=== PATIENT | female | born 1995 | race Caucasian/White ===

== ENCOUNTER 2023-05-24 19:02 | Inpatient (IN) | payer BC, SELFPAY ==
[2023-05-24] VITALS (8 sets, daily range): BP systolic 102–164; BP diastolic 61–89; BMI 19.1
[2023-05-24 12:33] LABS: Urine Albumin Trace (Neg - Trace); Urine Bilirubin Negative (Negative); Urine Character Slightly Cloudy (Clear); Urine Color Yellow; Urine Glucose Negative (Negative); Urine Ketone 1+ (Negative); Urine Leukocyte Trace (Negative); Urine Nitrite Negative (Negative); Urine Occult Blood 4+ (Negative); Urine Urobilinogen Negative (Neg - 1+)
[2023-05-24 12:46] LABS: Urine Squamous Cell 26-30 /LPF (Few); Urine Urothelial Cell 0-2 /LPF (FEW)
[2023-05-24 12:48] LABS: Urine Red Blood Cell 50-60 /HPF (0-2)
[2023-05-24 12:49] LABS: Urine Bacteria Few (Negative)
[2023-05-24 12:58] LABS: HCG, Urine Qualitative Screen Negative
[2023-05-24] MEDS: TORADOL 15 MG IV ×2 (13:00→18:37)
[2023-05-24] MEDS: OMNIPAQUE 50 ML PO (13:00)
[2023-05-24] MEDS: NSS 1000 IV (13:01)
[2023-05-24 13:09] LABS: Hematocrit 38.1 % (37.0-47.0); Hemoglobin 13.5 g/dL (12.0-16.0); Mean Corp Hgb Conc. 35.4 g/dL (33.0-37.0); Mean Corpuscular Hgb 29.4 pg (27.0-31.0); Mean Platelet Volume 10.3 fL (7.4-10.4); Platelet Count 148 10^3/uL (130-400); Red Blood Cell Count 4.59 10^6/uL (4.20-5.40); Red Cell Dist. Width 12.5 % (11.5-14.5)
[2023-05-24 13:22] LABS: ALT (SGPT) 22 U/L (0-35); AST (SGOT) 23 U/L (14-36); Albumin 4.4 g/dl (3.5-5.0); Alkaline Phosphatase 61 U/L (38-126); Blood Urea Nitrogen 8 mg/dl (7-17); Calcium 9.3 mg/dl (8.4-10.2); Carbon Dioxide 24 mmol/L (22-30); Chloride 105 mmol/L (98-107); Glucose 87 mg/dl (70-99); Lipase 76 U/L (23-300); Potassium 3.5 mmol/L (3.5-5.1); Sodium 135 mmol/L (135-145); Total Bilirubin 0.6 mg/dl (0.2-1.3); Total Protein 7.3 g/dl (6.3-8.2); eGFR > 60.00
--- NOTE | 2023-05-24 13:42 | ED.GENMED ---
History of Present Illness
<Justus Faria PA-C - Last Filed: 05/24/23 14:01>
General
Chief Complaint: Abdominal Pain
Source: patient
Exam Limitations: none
Time Seen by Provider: 05/24/23 12:18
Travel History
Have you had any contact with someone who has COVID-19?: No
Do you have any symptoms of coronavirus? Fever > 100 degrees, chills, cough, shortness of breath, sore throat, loss of taste or smell, muscle aches, or headache?: No
History of Present Illness
History of Present Illness:
27-year-old female presents complaining of right lower abdominal and right flank pain that now is radiating to the left lower abdomen onset yesterday. She also had onset of a fever yesterday. Temperature was 103. She has been using Tylenol and
NyQuil. She also notes abnormal vaginal bleeding. She is a week early with. And now was noted to pass dark clots. Her son is sick with bronchitis. She denies cough.
Past History
<Justus Faria PA-C - Last Filed: 05/24/23 14:01>
Past History
ED Past Medical History: None; Negative Asthma, HTN, Hypercholesterolemia or NIDDM
ED Past Surgical History: None
Social History
Tobacco: Smoker
Alcohol: Occasional
Personal: Single
Living: alone
Phy Exam
<Justus Faria PA-C - Last Filed: 05/24/23 14:01>
Physical Exam
Physical Exam:
General: Well-appearing female no acute respiratory distress
HEENT: Normocephalic atraumatic
Heart: Regular rate and rhythm no murmurs
Lungs: Clear to auscultation bilaterally no wheezing
Abdomen soft tender to the right lower and left lower quadrants and mildly to the right costovertebral angle. Mild guarding no rebound tenderness nondistended
Extremities: No cyanosis or edema
Course
<Justus Faria PA-C - Last Filed: 05/24/23 14:01>
Orders/Labs/Results
Orders:
Orders
05/24/23 12:11
Test Result ONCE
05/24/23 12:12
HCG, Urine Qualitative Screen Urgent
Date Specimen was Collected: 05/24/23
Time Specimen was Collected: 12:11
Urinalysis Reflex To Culture Urgent
Date Specimen was Collected: 05/24/23
Time Specimen was Collected: 12:11
Urine Microscopic Reflex Cult Urgent
05/24/23 12:38
0.9% Sodium Chloride 1000 ml [Nss] 1,000 ml IV BOLUS
Iohexol [Omnipaque] See Protocol PO NOW STA
Ketorolac [Toradol] 15 mg IV NOW STA
US Pelvis W Transvag Combined Urgent
Comment:
Reason For Exam: pelvic pain irregular bleeding
05/24/23 12:55
Complete Blood Count/With Diff Urgent
Comprehensive Metabolic Panel Urgent
Lipase Urgent
Manual Differential Urgent
Monotest Urgent
Comment: ADD ON
05/24/23 13:32
COVID-19 Antigen Urgent
Source: Nasal Swab
Influenza A+B Rapid Molecular Urgent
ARIANA Source: Nasal Swab
Specimen Description:
05/24/23 14:35
Add On- LAB Urgent
Tests Added?: monospot
05/24/23 15:05
CT Abd/pel W Iv And Oral Contr Urgent
Comment:
Reason For Exam: abdominal pain
Iohexol [Omnipaque] See Protocol PO NOW STA
05/24/23 15:23
Ondansetron Injectable [Zofran] 4 mg IV NOW STA
05/24/23 16:11
Blood Culture Q30M
ARIANA Source: Blood/Venous
Specimen Description:
05/24/23 16:31
Blood Culture Q30M
ARIANA Source: Blood/Venous
Specimen Description:
Abnormal Lab Results
05/24/23 05/24/23
12:12 12:55
WBC 2.0 L* 10^3/uL
(4.8-10.8)
Abs Neuts (Manual) 0.8 L* 10^3/uL
(1.4-6.5)
Monocytes (Manual) 29 H %
(2-9)
Creatinine 0.5 L mg/dL
(0.6-1.0)
Urine Ketones 1+ A
(Negative)
Ur Occult Blood Reflex 4+ A
(Negative)
Leukocyte Esterase Rfl Trace A
(Negative)
Urine RBC 50-60 A /HPF
(0-2)
Urine Bacteria (Reflex) Few A
(Negative)
05/24/23 12:55
05/24/23 12:55
Vital Signs
Initial and Last Documented VS:
Initial Vital Signs
Temp Pulse Resp BP Pulse Ox
97.7 F 99 16 164/89 99
05/24/23 11:37 05/24/23 11:37 05/24/23 11:37 05/24/23 11:37 05/24/23 11:37
Last Documented Vital Signs
Temp Pulse Resp BP Pulse Ox
97.7 F 65 16 110/67 98
05/24/23 11:37 05/24/23 16:16 05/24/23 16:16 05/24/23 16:16 05/24/23 16:16
<Roman Wood PA-C - Last Filed: 05/24/23 18:02>
Orders/Labs/Results
Orders:
Orders
05/24/23 12:11
Test Result ONCE
05/24/23 12:12
HCG, Urine Qualitative Screen Urgent
Date Specimen was Collected: 05/24/23
Time Specimen was Collected: 12:11
Urinalysis Reflex To Culture Urgent
Date Specimen was Collected: 05/24/23
Time Specimen was Collected: 12:11
Urine Microscopic Reflex Cult Urgent
05/24/23 12:38
0.9% Sodium Chloride 1000 ml [Nss] 1,000 ml IV BOLUS
Iohexol [Omnipaque] See Protocol PO NOW STA
Ketorolac [Toradol] 15 mg IV NOW STA
US Pelvis W Transvag Combined Urgent
Comment:
Reason For Exam: pelvic pain irregular bleeding
05/24/23 12:55
Complete Blood Count/With Diff Urgent
Comprehensive Metabolic Panel Urgent
Lipase Urgent
Manual Differential Urgent
Monotest Urgent
Comment: ADD ON
05/24/23 13:32
COVID-19 Antigen Urgent
Source: Nasal Swab
Influenza A+B Rapid Molecular Urgent
ARIANA Source: Nasal Swab
Specimen Description:
05/24/23 14:35
Add On- LAB Urgent
Tests Added?: monospot
05/24/23 15:05
CT Abd/pel W Iv And Oral Contr Urgent
Comment:
Reason For Exam: abdominal pain
Iohexol [Omnipaque] See Protocol PO NOW STA
05/24/23 15:23
Ondansetron Injectable [Zofran] 4 mg IV NOW STA
05/24/23 16:11
Blood Culture Q30M
ARIANA Source: Blood/Venous
Specimen Description:
05/24/23 16:31
Blood Culture Q30M
ARIANA Source: Blood/Venous
Specimen Description:
Abnormal Lab Results
05/24/23 05/24/23
12:12 12:55
WBC 2.0 L* 10^3/uL
(4.8-10.8)
Abs Neuts (Manual) 0.8 L* 10^3/uL
(1.4-6.5)
Monocytes (Manual) 29 H %
(2-9)
Creatinine 0.5 L mg/dL
(0.6-1.0)
Urine Ketones 1+ A
(Negative)
Ur Occult Blood Reflex 4+ A
(Negative)
Leukocyte Esterase Rfl Trace A
(Negative)
Urine RBC 50-60 A /HPF
(0-2)
Urine Bacteria (Reflex) Few A
(Negative)
05/24/23 12:55
05/24/23 12:55
Vital Signs
Initial and Last Documented VS:
Initial Vital Signs
Temp Pulse Resp BP Pulse Ox
97.7 F 99 16 164/89 99
05/24/23 11:37 05/24/23 11:37 05/24/23 11:37 05/24/23 11:37 05/24/23 11:37
Last Documented Vital Signs
Temp Pulse Resp BP Pulse Ox
97.7 F 65 16 110/67 98
05/24/23 11:37 05/24/23 16:16 05/24/23 16:16 05/24/23 16:16 05/24/23 16:16
<Justus Faria PA-C - Last Filed: 05/24/23 14:01>
MDM/Problems Addressed
Differential Diagnosis Includes:
Abdominal pain fever abnormal vaginal bleeding. Differential is large. Consider viral illness consider ovarian related pathology given the pain. test will be checked
Start imaging with ultrasound of the pelvis if negative consider CT
<Roman Wood PA-C - Last Filed: 05/24/23 18:02>
*Radiology
Radiology exam reviewed: radiology read reviewed
*Critical Care Note
Total Time (30-74mins, 75-104mins- exclusive of procedures): Not Applicable
<Roman Wood PA-C - Last Filed: 05/24/23 18:02>
Patient Management
Discussion with other providers: Hospitalist
Escalation/DeEscalation of care consider admission/obs:
Patient received in signout pending results of the CT of the abdomen and pelvis. CAT scan ultimately came back without any acute pathologies. Patient remains hemodynamically stable and afebrile. I do have concerns giving her leukopenia and
neutropenia combined with her reported fever of 103.3 yesterday. Given her fever combined with neutropenia I do not feel comfortable discharging the patient home and will admit for continued evaluation and monitoring of her neutropenia as well as
temperatures. Decision to start antibiotics was deferred to hospitalist team who will be managing the patient as there is no clear etiology for patient's fever at this time. Hospitalist team accepts for continued evaluation and treat
ED Attending Note
<Justus Faria PA-C - Last Filed: 05/24/23 14:01>
-
Portions of this chart may have been created with voice recognition software.� Occasional wrong word or��sound alike� substitutions may have occurred due to the inherent limitations of voice recognition software.
Discharge Plan
Departure
Patient Disposition: Admit
Date of Disposition: 05/24/23
Time of Disposition: 17:39
Presentation/result/management discussed w/ accepting MD/DO: Hospitalist
Discharge Problem:
Fever, Abdominal pain, Neutropenia
Prescriptions:
No Action
acetaminophen [Tylenol Extra Strength] 500 mg Tablet
1,000 mg PO DAILYPRN PRN (Reason: mild pain)
albuterol sulfate 90 mcg/actuation Hfa Aerosol Inhaler
2 puff INHALATION R QIDPRN PRN (Reason: bronchitis)
Referrals:
NONE,* [Family Provider] -
Interventions
Interventions:
*Risk Screen - Suicide Last Done: 05/24/23 11:37
*General Assessment Last Done: 05/24/23 11:37
*Neglect/Abuse Screening Last Done: 05/24/23 11:37
ED- Fall Risk Assessment Last Done: 05/24/23 11:44
*ED COVID-19 Vaccine History Last Done: 05/24/23 11:44
QB-Qgudht-Xireomnclx Assessment Last Done: 05/24/23 12:07
Discharge Date and Time
Print Language: NICARAGUAN
[2023-05-24 13:52] LABS: COVID-19 Antigen Negative (Negative)
[2023-05-24 14:15] LABS: Atypical Lymphocytes 1 %; Band Neutrophils 0 % (0-3); Eosinophils 2 % (0-6); Lymphocytes 24 % (20-51); Monocytes 29 % (2-9); Segmented Neutrophils 44 % (42-75)
[2023-05-24 14:17] LABS: Normal RBC Morphology Yes; Platelets Checked Yes; Total Cells Counted 100
[2023-05-24 14:19] LABS: Absolute Neutrophils -Man Diff 0.8 10^3/uL (1.4-6.5)
[2023-05-24 15:26] LABS: Monotest Negative (Negative)
[2023-05-24] MEDS: ZOFRAN 4 MG IV (15:27)
--- NOTE | 2023-05-24 17:48 | W.PN.UPDATE ---
Update Note
Progress Note Update
I saw and examined the patient.
The HEAD START COORDINATOR's note was reviewed and I agree with the note.
Comment:
27 female with no significant medical history is presenting with low back pain and fever at home. Patient was also complaining of vaginal bleeding with dark clots. Complaining of right lower abdominal pain and flank pain. Sick contact at home
with family with bronchitis.
General no acute distress
Cardiac S1-S2 regular rate rhythm
Lungs are clear to auscultation bilaterally
abdomen positive bowel sounds nondistended,
extremities no edema
Skin no rash
Impression
Leukopenia likely secondary to viral infection
Vaginal Bleeding secondary to menarche
Lower abdominal pain with radiation to thighs concern for endometriosis in the setting of active menarche
Plan
Influenza and COVID-negative
Follow-up on the blood cultures
UA negative
Check chest x-ray
CT abdomen pelvis negative for acute pathology
Transvaginal pelvic ultrasound unremarkable. Ovarian follicles noted.
hCG negative.
Trend CBC and fever curve
Check inflammatory markers ESR CRP
Patient gave verbal consent to check for HIV
LFTs within normal limits can hold off on acute hepatitis panel
Hemoglobin stable. Check coags in the morning. Monoscreen negative.
If spikes fever overnight start broad-spectrum antibiotic with Vanco and cefepime then will also need ID evaluation
No neck pain headache or vision problems
Son with bronchitis on steroids at home.
Will ask heme-onc input
--- NOTE | 2023-05-24 18:23 | HPS.HSE ---
Family Physician
-
Family Physician: * NONE
Chief Complaint
-
Back/Abdominal Pain
History of Present Illness
Patient is 27-year-old female without significant past medical history who presents with low back pain, lower abdominal pain and fever. Patient describes pain located in the very low back which radiates around to the lower pelvic/suprapubic region.
She reports pain is quite intense. She notes feeling muscle aches in her legs associated with the pain. She also notes vaginal bleeding with very dark blood and clots which she states is unusual for her menses. Yesterday she developed fever of
103.3 �F. Due to persistent pain she presented to the emergency department for evaluation. Sh she reports her son is currently being treated for bronchitis. She denies any cough or upper respiratory symptoms. She denies nausea, vomiting,
diarrhea or constipation.
Medical History
Past Medical History
Past Medical History: Reports None
Past Surgical History: Reports Other
Additional Past Surgical History:
Widsom Teeth
Tonsillectomy
Social History
Tobacco: Vaping
Alcohol: None
Family History
Family History: Not pertinent
Allergies / Home Medications
Allergies reflects when Allergies were last updated in [facility].
Home Medications with original date entered in [facility]
Allergy/Medication List:
Allergies
Allergy/AdvReac Type Severity Reaction Status Date / Time
No Known Allergies Allergy Verified 05/24/23 11:36
Home Medications
acetaminophen 500 mg tablet (Tylenol Extra Strength) 1,000 mg PO DAILYPRN PRN mild pain 05/24/23
albuterol sulfate 90 mcg/actuation aerosol inhaler 2 puff inhalation R QIDPRN PRN bronchitis 05/24/23
Review of Systems
-
A 12 point ROS was completed and negative except as noted: Yes
Constitutional: Reports Fever
Respiratory: Denies Cough or Trouble Breathing
Cardiac: Denies Chest Pain or Palpitations
Physical Exam
Vital Signs
Vital Signs
Temp Pulse Resp BP Pulse Ox
97.7 F 65 16 110/67 98
05/24/23 11:37 05/24/23 16:16 05/24/23 16:16 05/24/23 16:16 05/24/23 16:16
Physical Exam
General: Comfortable and Conversant
HEENT: Anicteric and Moist mucous membranes
Respiratory: Clear and Non Labored Respirations
Cardiac: S1/S2 and Regular Rhythm; No Murmur
GI: Soft and Tender (Bilateral lower quadrants and suprapubic region without rebound or guarding)
Rectal: Deferred by Provider
Genito-urinary: No costovertebral tender
Musculoskeletal: No Clubbing, No Cyanosis and No Edema
Skin: Warm and Dry
Neuro: Awake, Alert, Oriented and Nonfocal/grossly intact
Psych: Calm
Laboratory Results
-
05/24/23 12:55
05/24/23 12:55
Laboratory Results
Total Bilirubin 0.6 mg/dl (0.2-1.3) 05/24/23 12:55
AST 23 U/L (14-36) 05/24/23 12:55
ALT 22 U/L (0-35) 05/24/23 12:55
Alkaline Phosphatase 61 U/L (38-126) 05/24/23 12:55
Lipase 76 U/L (23-300) 05/24/23 12:55
Data Reviewed
-
CT Scan: Report Reviewed by me
Ultrasound: Report Reviewed by me
Lab Data: Labs Reviewed by me
Impression/Plan
-
Neutropenia, unclear etiology, possibly viral given notable fever yesterday
-Consult Hematology
-Check HIV, ESR and CRP
-Continue to monitor CBC
-Monitor for recurrent fevers - If developed recurrent fever start vancomycin and cefepime
Back/Abdominal Pain, possibly endometriosis
-Imaging negative for acute pathology
-Continue Toradol prn for pain
DVT proph: SCDs
Code Status: Full Code
[2023-05-24 18:36] LABS: Erythrocyte Sed Rate 11 mm/hour (0-20)
--- NOTE | 2023-05-24 20:30 | PTCARENOTE ---
Pt arrived to the unit in NAD, VSS, afebrile. No complaints of pain at time of arrival. Pt oriented to room and call cosby. Pt reported feeling cold throughout the night, Tmax 99.7. Pt educated on Neutropenic precautions. She verbalized understanding
of all education.
[2023-05-25] MEDS: TORADOL 15 MG IV (00:54)
[2023-05-25] MEDS: TYLENOL 650 MG PO (02:32)
[2023-05-25 06:24] LABS: INR 1.13; PT 14.5 Sec (11.4-14.6)
[2023-05-25 06:25] LABS: APTT 38.3 Sec (23.4-35.0); Hematocrit 35.6 % (37.0-47.0); Hemoglobin 12.6 g/dL (12.0-16.0); Mean Corp Hgb Conc. 35.4 g/dL (33.0-37.0); Mean Corpuscular Hgb 29.6 pg (27.0-31.0); Mean Corpuscular Volume 83.6 fL (81.0-99.0); Mean Platelet Volume 10.4 fL (7.4-10.4); Platelet Count 124 10^3/uL (130-400); Red Blood Cell Count 4.26 10^6/uL (4.20-5.40); Red Cell Dist. Width 12.6 % (11.5-14.5)
[2023-05-25 06:31] LABS: Blood Urea Nitrogen 6 mg/dl (7-17); Calcium 8.8 mg/dl (8.4-10.2); Carbon Dioxide 25 mmol/L (22-30); Chloride 107 mmol/L (98-107); Estimated Creatinine Clearance 114 ml/min; Glucose 87 mg/dl (70-99); Potassium 4.2 mmol/L (3.5-5.1); Sodium 135 mmol/L (135-145); eGFR > 60.00
[2023-05-25 06:33] LABS: White Blood Cell Count 1.7 10^3/uL (4.8-10.8)
[2023-05-25 07:00] VITALS: BP 97/48
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
[2023-05-25 10:09] LABS: Absolute Neutrophils -Man Diff 0.6 10^3/uL (1.4-6.5); Band Neutrophils 0 % (0-3); Lymphocytes 32 % (20-51); Segmented Neutrophils 37 % (42-75)
[2023-05-25 10:10] LABS: Eosinophils 11 % (0-6); Monocytes 20 % (2-9)
[2023-05-25 10:11] LABS: Hypochromasia Slight; Normal RBC Morphology No; Ovalocytes Slight; Platelets Checked Yes; Total Cells Counted 100
[2023-05-25 10:25] LABS: Reticulocyte Count 0.5 % (0.4-2.8)
[2023-05-25 10:39] LABS: Fibrinogen 269 MG/DL (199-459)
[2023-05-25 10:42] LABS: D-Dimer 1.74 ug/mlFEU (0.00-0.50)
[2023-05-25 10:45] LABS: LDH 151 U/L (120-246)
[2023-05-25 10:57] LABS: IgA 191 mg/dl (70-400); IgG 970 mg/dl (700-1600); IgM 183 mg/dl (40-230)
[2023-05-25 11:18] LABS: TSH 2.64 uIU/ml (0.47-4.68)
[2023-05-25 11:54] LABS: Folate 16.8 ng/ml (2.76-20); Vitamin B12 861 pg/ml (239-931)
--- NOTE | 2023-05-25 12:45 | W.PN.HOSP.TC ---
Today's Communication/Plan
-
Await further culture data
Assessment / Plan
Assessment / Plan
General: Comfortable and Conversant
HEENT: Anicteric and Moist mucous membranes
Respiratory: Clear and Non Labored Respirations
Cardiac: S1/S2 and Regular Rhythm; No Murmur
GI: Soft and Tender (Bilateral lower quadrants and suprapubic region without rebound or guarding)
Rectal: Deferred by Provider
Genito-urinary: No costovertebral tender
Musculoskeletal: No Clubbing, No Cyanosis and No Edema
Skin: Warm and Dry
Neuro: Awake, Alert, Oriented and Nonfocal/grossly intact
Psych: Calm
Impression
Leukopenia
Neutropenia
Mild thrombocytopenia
Vaginal Bleeding secondary to menarche
Lower abdominal pain with radiation to thighs concern for endometriosis in the setting of active menarche
Plan
Influenza and COVID-negative
Follow-up on the blood cultures
UA negative
Check chest [id number].
CT abdomen pelvis negative for acute pathology
Transvaginal pelvic ultrasound unremarkable. Ovarian follicles noted.
hCG negative.
Trend CBC and fever curve
ESR wnl. CRP elevated. D-dimer elevated. Fibrinogen within normal limits.
Patient gave verbal consent to check for HIV pending
LFTs within normal limits can hold off on acute hepatitis panel
Hemoglobin stable. Coags normal. Monoscreen negative.
No neck pain headache or vision problems
Immunoglobulin levels within normal limits.
Reticulocyte count normal
Serum electrophoresis studies ordered by oncology
Son with bronchitis on steroids at home.
Will ask heme-onc input
Anticipated Discharge: > 48 hours
Subjective/Interval History
-
Date of Service: May 25, 2023
Was cold overnight.
afebrile
feeling better
Objective Data
-
Labs:
Laboratory Results
05/25/23
06:02
WBC 1.7 L*
Hgb 12.6
Hct 35.6 L
Plt Count 124 L
PT 14.5
INR 1.13
APTT 38.3 H
Sodium 135
Potassium 4.2
Chloride 107
Carbon Dioxide 25
BUN 6 L
Creatinine 0.6
Glucose 87
Calcium 8.8
Vital Signs:
Vital Signs
Temp Pulse Resp BP Pulse Ox
98.0 F 49 16 97/48 99
05/25/23 07:00 05/25/23 07:00 05/25/23 07:00 05/25/23 07:00 05/25/23 07:00
I&O
05/24/23 05/25/23 05/26/23
06:59 06:59 06:59
Intake Total 720 / 720
Balance 720 / 720
[2023-05-25] MEDS: ZOFRAN 4 MG IV (13:24)
[2023-05-25 15:00] VITALS: BP 107/54
--- NOTE | 2023-05-25 15:06 | CM ---
Spoke with pt at bedside
Pt lives in a one story condo with her 5yo son and brother
Independent, working, drives
Denies DME in home
Denies past HH/SNF
Has ride at d/c
PCP - does not have PCP - given info on PCP's affiliated with [facility]
Pharm - [facility]
CM will follow for d/c needs
Plan - anticipate home no needs
--- NOTE | 2023-05-25 18:19 | W.PN.UPDATE ---
Addendum entered and electronically signed by Case Stubbs MD 05/25/23 18:30:
More than 30 minutes spent in discharge including
Final examination of the patient
Summarizing hospital stay
Instructions for continuing care to all relevant caregivers
Preparation of discharge records, prescriptions, and referral forms
Total time spent (in minutes): 45
Original Note:
Update Note
Progress Note Update
Received [place] text from nurse that patient wants to leave AGAINST MEDICAL ADVICE. Explained TO patient that she is here with leukopenia/neutropenia, thrombocytopenia high risk of developing neutropenic fever, leading to sepsis, septic shock and
. Patient and significant other at bedside verbalized understanding. Patient works at [employer] and highly recommended to protect herself and consider wearing mask and washing hands frequently. Recommend to get blood work done with primary
doctor. Also recommended follow-up with chicken and fish cleaner. Patient and significant other at bedside verbalized understanding and signed the form. All questions were answered to the satisfaction. I did offer them to stay in the hospital and continue
to receive medical care and be closely monitored while further blood work was pending. Patient was determined to leave today and did not want to stay in the hospital anymore. Patient signed the AMA form after she was explained the risk leaving the
hospital versus benefits of staying and receiving further aggressive medical care management.
--- NOTE | 2023-05-25 18:22 | W.DCSUMMARY ---
Discharge Summary
Discharge Data
Date of Admission: 05/24/23
Date of Discharge: 05/25/23
-
Pending Results: Yes
Additional Pending Results:
Leaving AGAINST MEDICAL ADVICE follow-up with primary doctor
Hospital Course
27-year female with no significant past medical history who is presenting from home with vaginal bleeding with blood clots and lower back pain. Patient initially came because she was concerned that she was having a miscarriage. Patient has history
of miscarriage in the past. Incidentally patient was found to have leukopenia and neutropenia. Patient was febrile prior to arrival to the hospital. Patient with sick contact with son at home who is being treated with bronchitis. Patient was
afebrile in the hospital. Patient CT abdomen pelvis was negative for acute pathology. Pelvic transvaginal ultrasound was negative for any vaginal products. Urine beta-hCG was negative. Patient CRP mildly elevated. Platelets down trended.
Monoscreen, COVID influenza was negative. Preliminary blood culture was negative. Chest x-ray was negative acute pathology/infiltrate. Reticulocyte count within normal limits. Hematology was consulted serum electrophoresis was ordered. Patient
immunoglobin levels were within normal limits. HIV was tested after receiving verbal consent and was pending results prior to patient leaving AMA. Patient blood pressure and vital signs otherwise are stable. Patient insisting on leaving against
medical advice. Patient was explained the risk of leaving AGAINST MEDICAL ADVICE and benefits of staying in the hospital. Patient insisting on going and signed the AMA form. Highly recommended patient to follow-up with primary doctor and undergo
further blood work including CBC. Patient and significant other verbalized understanding and signed the form.
Discharge Plan
-
Patient Disposition: Against Medical Advice
Referrals:
NONE,* [Family Provider] -
Prescriptions:
No Action
acetaminophen [Tylenol Extra Strength] 500 mg Tablet
1,000 mg PO DAILYPRN PRN (Reason: mild pain)
albuterol sulfate 90 mcg/actuation Hfa Aerosol Inhaler
2 puff INHALATION R QIDPRN PRN (Reason: bronchitis)
Discharge Date and Time
Discharge Date/Time: 05/25/23 18:27
Print Language: MONGOLIAN
[2023-05-26 13:48] LABS: Haptoglobin 123 mg/dL (30-200)
[2023-05-26 18:27] LABS: HIV Combo Negative (Negative)
[2023-05-28 00:51] LABS: Albumin 3.58 g/dL (3.75-5.01); Alpha 2 Globulin 0.62 g/dL (0.48-1.05); Free Kappa Light Chains,Quant 17.88 mg/L (3.30-19.40); Free Lambda Light Chains,Quant 19.46 mg/L (5.71-26.30); IgA 183 mg/dL (68-408); IgG 895 mg/dL (768-1632); IgM 181 mg/dL (35-263); Immunofixation Electrophoresis IFE Done; Kappa/Lambda Fr Light Ratio 0.92 (0.26-1.65); Total Protein-Electrophoresis 6.1 g/dL (6.3-8.2)
== END 2023-05-25 18:27 | disposition left against medical advice (07) | DRG 810 ==
LOC: 3 WEST ACU 19:02
PROVIDERS: Emergency Medicine; Nurse Practitioner Family; Physician Assistant; Physician Assistant Medical; ADMITTING PHYSICIAN Hospitalist; EMERGENCY PHYSICIAN Emergency Medicine; OTHER PHYSICIAN Internal Medicine Hematology & Oncology
DX: D70.9 Neutropenia, unspecified (principal); F17.200 Nicotine dependence, unspecified, uncomplicated; R10.2 Pelvic and perineal pain; D69.6 Thrombocytopenia, unspecified; N93.9 Abnormal uterine and vaginal bleeding, unspecified; I95.9 Hypotension, unspecified; N94.6 Dysmenorrhea, unspecified; J30.9 Allergic rhinitis, unspecified; G43.909 Migraine, unspecified, not intractable, without status migrainosus; N80.9 Endometriosis, unspecified; R50.81 Fever presenting with conditions classified elsewhere; Z11.52 Encounter for screening for COVID-19
CPT/HCPCS: 71046; 74177; 76830; 76856; 80048; 80053; 81003; 81015; 81025; 82607; 82746; 82784; 83010; 83521; 83615; 83690; 84155; 84165; 84443; 85025; 85045; 85379; 85384; 85610; 85652; 85730; 86140; 86308; 86334; 87040; 87389; 87502; 87811; 96361; 96374; 96375; 99285; Q9967